=== PATIENT | female | born 1975 | race Caucasian/White ===

== ENCOUNTER → 2024-06-05 11:17 | Outpatient (REF) | payer BC, SELFPAY | LOC: HWRAD 11:17 | PROVIDERS: ATTENDING PHYSICIAN Family Medicine | DX: Z12.31 Encounter for screening mammogram for malignant neoplasm of breast (principal); E03.9 Hypothyroidism, unspecified | CPT/HCPCS: 76536; 77063; 77067 ==

== ENCOUNTER → 2024-06-19 10:12 | Outpatient (REF) | payer BC, SELFPAY | LOC: WDC 10:12 | PROVIDERS: ATTENDING PHYSICIAN Family Medicine | DX: R92.8 Other abnormal and inconclusive findings on diagnostic imaging of breast (principal) | CPT/HCPCS: 76642 ==

== ENCOUNTER → 2024-06-21 12:05 | Outpatient (REF) | payer BC, SELFPAY ==
--- NOTE | 2024-06-21 15:25 | OID.BR.INTR ---
MARGRETD Breast Navigator - Initial
- -
Date of Contact: 06/21/24
Met with patient. Patient given written information on navigator services available at [facility]. Will follow up as needed per protocol.
== END ==
LOC: WDC 12:05
PROVIDERS: ATTENDING PHYSICIAN Family Medicine
DX: N63.21 Unspecified lump in the left breast, upper outer quadrant (principal)
CPT/HCPCS: 88305; 19083; 77065; 88341; 88342; 88360; A4648

== ENCOUNTER 2024-06-25 12:40 | Emergency (ER) | payer BC, SELFPAY ==
[2024-06-25 13:36] VITALS: BMI 31.2
[2024-06-25 13:40] VITALS: BP 113/72
--- NOTE | 2024-06-25 13:55 | EDRN ---
Andrea Cortez PA in to see pt.
--- NOTE | 2024-06-25 14:14 | ED.GENMED ---
History of Present Illness
General
Chief Complaint: Musculo-Skeletal Complaint
Source: patient
Time Seen by Provider: 06/25/24 13:54
History of Present Illness
History of Present Illness:
49-year-old female presenting to the emergency department for evaluation of right ankle pain after accidentally slipping down a wet grassy surface last night around 2 AM, this morning with continued pain and swelling and inability to put direct
pressure on the right lower extremity. Patient also notes some associated abrasions on the right knee and forearm but otherwise no other concerns. Denies any loss consciousness, vomiting, visual changes. Patient states main concern is that she
previously had ligament repair to the same right ankle about 2 years ago done through an orthopedics specialist at [facility]. Patient took some anti-inflammatories prior to arrival. Also notes she has some tramadol at home to continue using
for pain as needed.
Past History
Past History
ED Past Medical History: GERD, Hypothyroidism, Psychiatric (anxiety) and Other (lyme, tardive dyskinesia, hemorrhoids, chronic back pain, sciatica)
ED Past Surgical History: Orthopedic, Tonsilectomy and Urological
Social History
Tobacco: Non-smoker
Alcohol: Occasional (Few times per week)
Drug: None
Personal: Single
Living: with family
Employment: Employed
Review of Systems
Review of Systems
All Other Systems: ROS reviewed and negative except as documented in HPI and ROS
Phy Exam
Physical Exam
Physical Exam:
GENERAL: Alert , in no apparent distress
EYE: conjunctiva clear
Head: Normocephalic atraumatic
NECK: Supple,
ENT: mmm.
LUNGS: no acute respiratory distress
NEUROLOGICAL: Alert and oriented
SKIN: Warm and dry, skin intact.
MUSCULOSKELETAL: Right lower extremity: Mild to moderate soft tissue swelling with significant tenderness overlying the lateral malleolus. No breaks in the skin or obvious deformity. No tenderness of the proximal tib-fib region. No tenderness at
the base of the fifth metatarsal. Easily palpable pedal pulse. Sensation grossly intact to light touch throughout the extremity. Superficial abrasion over the right knee and forearms noted.
PSYCH: Normal and appropriate interaction.
Scores
Heart Failure Risk
Heart Failure Risk Score: Not Applicable
Heart Score for Chest Pain Patients
STEMI patient?: Not applicable
Withdrawal Assessment of Alcohol
Withdrawal Assessment Completed?: Not applicable
Course
Orders/Labs/Results
Orders:
Orders
06/25/24 12:48
CR Ankle - Right Min 3 Views * Urgent
Comment:
Reason For Exam: injury
CR Facial Bones Comp Min 3 Vw* Urgent
Comment:
Reason For Exam: injury
06/25/24 14:15
Crutches-Treatment ONCE
Vital Signs
Initial and Last Documented VS:
Initial Vital Signs
Temp Pulse Resp Pulse Ox
98.3 F 92 18 95
06/25/24 12:46 06/25/24 12:46 06/25/24 12:46 06/25/24 12:46
Last Documented Vital Signs
Temp Pulse Resp BP Pulse Ox
98.3 F 81 16 113/72 94
06/25/24 12:46 06/25/24 13:40 06/25/24 13:40 06/25/24 13:40 06/25/24 13:40
Procedures
Splinting/Sling Placement
Right Lower Leg:
Procedure completed by: Dana
Pre-splint extermity exam: neurovascular intact
Type of splint: sugar-tong and posterior short leg
Splint material: other (3in orthoglass)
Splint checked by provider?: Yes
Normal distal neurovascular exam?: Yes
MDM/Problems Addressed
Differential Diagnosis Includes:
Fracture, sprain, contusion
MDM/Problems Addressed:
49-year-old female presenting to the emergency department for evaluation after slipping on a wet surface last night injuring her right ankle. Patient also notes associated abrasions but states this is really not bothering her. No head injury or
loss consciousness. No blood thinners. She is always x-rays were already ordered in triage. Patient declining anything additional for pain in the ER.
*Radiology
Radiology exam reviewed: preliminary read by ED provider (Lateral malleolus fracture)
*Pulse Oximetry
Patient hypoxic: no
*Critical Care Note
Total Time (30-74mins, 75-104mins- exclusive of procedures): Not Applicable
Patient Management
Escalation/DeEscalation of care consider admission/obs:
Patient placed in a posterior stirrup splint. Provided with crutches. Advised to remain nonweightbearing until follow-up with orthopedics. Aware of return precautions to the ER. Otherwise stable for discharge home
ED Attending Note
-
Portions of this chart may have been created with voice recognition software.� Occasional wrong word or��sound alike� substitutions may have occurred due to the inherent limitations of voice recognition software.
Discharge Plan
Departure
Patient Disposition: Home (Routine Discharge)
Date of Disposition: 06/25/24
Time of Disposition: 14:14
Patient with high blood pressure during this ER visit?: No
Discharge Problem:
Closed fracture of distal end of right fibula
Instructions: Ankle Fracture (DC)
Prescriptions:
No Action
tramadol 50 MG tablet
50 mg PO Q6HPRN PRN (Reason: moderate pain)
Patient Comments:
05/09/2021: last filled 05/02/21, 60 tabs for 15 days from [facility]#[id number]
sertraline 50 MG tablet
100 mg PO DAILY
cyclobenzaprine [Flexeril] 10 mg Tablet
10 mg PO HS PRN (Reason: pain)
levothyroxine 175 mcg Tablet
175 mcg PO DAILY
loperamide [Imodium] 2 mg Capsule
2 mg PO Q4H PRN (Reason: distention)
clonazepam 1 mg Tablet
1 mg PO BID
ibuprofen 400 mg Tablet
400 mg PO Q6H PRN (Reason: pain)
alum-mag hydroxide-simeth [Maalox] 200-200-20 mg/5 mL Suspension
10 ml PO QID PRN (Reason: distention)
medroxyprogesterone [Depo-Provera] 150 mg/mL Syringe
150 mg IM [id number]
methylphenidate HCl 40 mg Tablet,Chew,Ir-Er.[id number]
40 mg PO TID
Vitamin D3
50,000 units PO .WEEKLY
nitrofurantoin monohyd/m-cryst [Macrobid] 100 mg capsule
100 mg PO BID Qty: 20 0RF
Interventions
Interventions:
*Risk Screen - Suicide Last Done: 06/25/24 12:46
*General Assessment Last Done: 06/25/24 12:46
*Neglect/Abuse Screening Last Done: 06/25/24 12:46
ED- Fall Risk Assessment Last Done: 06/25/24 13:37
*ED COVID-19 Vaccine History Last Done: 06/25/24 13:37
*Nursing Disposition Last Done: 06/25/24 14:45
ED-Musculoskeletal Assessment Last Done: 06/25/24 13:37
Discharge Date and Time
Discharge Date/Time: 06/25/24 14:46
Print Language: AMHARIC
--- NOTE | 2024-06-25 14:20 | EDRN ---
Splint placed to R ankle by Andrea HERBERT and Carlito MENENDEZ PCT.
== END 2024-06-25 14:46 | disposition home or self-care (01) ==
LOC: EMR 12:40
PROVIDERS: EMERGENCY PHYSICIAN Emergency Medicine; FAMILY PHYSICIAN Family Medicine
DX: S82.831A Other fracture of upper and lower end of right fibula, initial encounter for closed fracture (principal); S80.211A Abrasion, right knee, initial encounter; S50.811A Abrasion of right forearm, initial encounter; R22.0 Localized swelling, mass and lump, head; W01.0XXA Fall on same level from slipping, tripping and stumbling without subsequent striking against object, initial encounter
CPT/HCPCS: 99283; 29515; 70150; 73610

== ENCOUNTER → 2024-09-11 12:24 | Outpatient (REF) | payer BC, SELFPAY ==
[2024-09-11 14:22] LABS: % Basophils 0.7 % (0-2); % Eosinophils 1.8 % (0-6); % Immature Granulocytes 0.4 % (0-0.5); % Monocytes 9.9 % (1.7-9.3); % Neutrophils 63.2 % (42.2-75.2); Absolute Eosinophils 0.1 10^3/uL (0-0.7); Absolute Lymphocytes 1.3 10^3/uL (1.2-3.4); Absolute Monocytes 0.6 10^3/uL (0.1-0.6); Absolute Neutrophils 3.5 10^3/uL (1.4-6.5); Hematocrit 42.8 % (37.0-47.0); Hemoglobin 14.5 g/dL (12.0-16.0); Mean Corp Hgb Conc. 33.9 g/dL (33.0-37.0); Mean Corpuscular Hgb 33.1 pg (27.0-31.0); Mean Corpuscular Volume 97.7 fL (81.0-99.0); Mean Platelet Volume 10.7 fL (7.4-10.4); Nucleated Red Blood Cells % 0 %; Platelet Count 171 10^3/uL (130-400); Red Blood Cell Count 4.38 10^6/uL (4.20-5.40); White Blood Cell Count 5.5 10^3/uL (4.8-10.8)
[2024-09-11 14:54] LABS: ALT (SGPT) 59 U/L (0-35); AST (SGOT) 65 U/L (14-36); Albumin 4.5 g/dl (3.5-5.0); Alkaline Phosphatase 112 U/L (38-126); Blood Urea Nitrogen 16 mg/dl (7-17); Calcium 9.8 mg/dl (8.4-10.2); Carbon Dioxide 25 mmol/L (22-30); Chloride 104 mmol/L (98-107); Glucose 93 mg/dl (70-99); Potassium 4.5 mmol/L (3.5-5.1); Sodium 141 mmol/L (135-145); Total Bilirubin 0.7 mg/dl (0.2-1.3); Total Protein 6.7 g/dl (6.3-8.2); eGFR > 60.00
== END ==
LOC: REG 12:24
PROVIDERS: ATTENDING PHYSICIAN Surgery Plastic and Reconstructive Surgery; FAMILY PHYSICIAN Family Medicine
DX: Z01.818 Encounter for other preprocedural examination (principal)
CPT/HCPCS: 36415; 80053; 85025; 93005

== ENCOUNTER → 2024-10-02 09:52 | Outpatient (REF) | payer BC, SELFPAY | LOC: WDC 09:52 | PROVIDERS: ATTENDING PHYSICIAN Surgery | DX: C50.412 Malignant neoplasm of upper-outer quadrant of left female breast (principal) | CPT/HCPCS: 38792; 76942; A9541 ==

== ENCOUNTER 2024-10-03 06:07 | Inpatient (IN) | payer BC, SELFPAY ==
[2024-09-19 11:14] VITALS: BMI 30.9
[2024-09-19 12:58] LABS: Prealbumin (Transthyretin) 33.6 mg/dl (17.6-36.0)
[2024-09-19 13:03] LABS: Vitamin D, 25-OH*** 41.9 ng/mL (30-80)
[2024-10-03] VITALS (18 sets, daily range): BP systolic 30–140; BP diastolic 65–81; BMI 30.9
[2024-10-03] MEDS: LOVENOX 40 MG SC (06:30)
[2024-10-03] MEDS: TYLENOL 1000 MG PO ×3 (06:52→23:36)
--- NOTE | 2024-10-03 07:15 | W.SUR.PREOP ---
Pre-Operative Surgical Note
-
I have examined this patient prior to the performance of the scheduled procedure.
The patient's condition is unchanged from the time of the current History and
Physical and the patient is able to undergo the scheduled procedure.
--- NOTE | 2024-10-03 13:03 | OR.RPT ---
Operative Report
Operative Report
# The patient is a 49-year-old female with biopsy-proven early stage favorable left breast carcinoma who presents for bilateral mastectomies, left sentinel lymph node mapping and biopsy and immediate reconstruction with Dr. Dann Leija. On the
day prior to the procedure the patient presented to the [facility] center where technetium radiotracer was injected into the left breast parenchyma. On the day of surgery the patient presented verified her procedures. DVT and antibiotic
prophylaxis were provided the patient was taken to the operating room and in the supine position general anesthesia with a laryngeal mask airway was induced. Bradley catheter was inserted using aseptic technique and chest breast and upper abdomen
were prepped and draped in usual sterile fashion. Once the sterile field was created, a timeout with all members present was performed. I began attention to the left breast where an inframammary incision was made sharply. Dissection was carried
down to fascia using the cautery and the intention was to preserve the capsule around the patient's existing saline breast implants. This would function potentially as a substitute for the acellular dermal matrix. The patient is still a smoker.
The breast was taken off the capsule taking care not to leave any remnant of breast tissue. Then the skin was elevated off the breast using the PlasmaBlade and in view of the retractor. At the level of the retroareolar region retroareolar tissue
was sent oriented for the pathologist and frozen section revealed no evidence of tumor cells. Dissection was completed heading superiorly. At this juncture the capsule was incised along anatomic planes and the saline implant was removed. Breast
dissection was completed by taking the rest of the tissue off laterally. Any larger vessels were controlled with 3-0 silk tie. Time out of body was noted and the specimen was oriented for the pathologist. The specimen immediately was placed in
formalin. Dr. Uribe had begun dissection on the right side elevating the capsule are dissecting around the capsule and removing the implant. That breast tissue was oriented and time had a body was noted as well. On the left side once the breast
was removed we entered the axillary space by incising clavipectoral fascia. Using the neoprobe 3 sentinel node packets were encountered and excised. There feeding vessels were controlled with 3-0 silk tie. Frozen section analysis in the nodes was
negative. Hemostasis was verified and a moist pack was placed in the cavity. Dr. Quigley began the reconstructive portion of the procedure on that side and I switched to the right to complete any further breast tissue dissection. Again a moist
pack was placed and reconstructive efforts continued. At this juncture all sponge needle and instrument counts were correct.
[place] Node Bx Breast Cancer
[place] Node Bx Breast Cancer
Operation performed with curative intent: Yes
Tracer(s) to ID [place] Nodes in Non-Neoadjuvant setting: Radioactive Tracer
Tracer(s) to ID [place] Nodes in the Neoadjuvant Setting: N/A
All nodes at end of dye-filled Lymphatic Channel removed: N/A
All Significantly Radioactive Nodes were removed: Yes
All Palpably Suspicious Nodes were Removed: Yes
Bx Proven Pos Nodes Marked Prior to Chemo ID'd & Removed: Yes
--- NOTE | 2024-10-03 13:33 | W.IMMPOSTOP ---
Surgical Immed Post Op Note
-
Primary Surgeon: SHIRA Pringle MD
Assisting Surgeon:
Pre-op Diagnosis: breast cancer, history of bilateral breast implants
Post-op Diagnosis: same
Procedure Performed: bilateral immediate prepectoral insole coverer placement for breast reconstruction at time of mastectomy
Anesthesia Type: General
Specimen / Cultures: Per Dr. Liz
Estimated Blood Loss: 30 cc
Complications: none
Operative Findings: as expected
--- NOTE | 2024-10-03 13:33 | OR.RPT ---
Operative Report
Operative Report
surgeon: SHIRA Pringle MD
Preoperative diagnosis: Breast cancer
Postoperative diagnosis: Same
Procedure:
1. Bilateral immediate breast reconstruction with prepectoral tissue expanders
2. Removal of bilateral saline breast implants
3. Extensive modifications to the implant capsule
Complications: None
Anesthesia: General
EBL: 30cc
Assayer size: 13 cm
Indications for procedure: Patient was referred to me by Dr. Liz with a recent diagnosis of breast cancer. She was planned to undergo bilateral mastectomy. We discussed her options for breast reconstruction at length including implant based
and autologous options. The patient opted for immediate reconstruction with tissue expanders. She understands that the final reconstruction will be staged. We also discussed the possible use of ADM and spy angiography. Risks include
reconstructive failure, capsular contracture, infection, delayed wound healing, mastectomy skin flap necrosis, hematoma, seroma and need for repeat procedure. Patient understood these risks and desired to proceed. Consents were signed accordingly.
Procedure in detail: Patient was identified the preoperative area and the surgical site was confirmed to be the bilateral breast. All questions were answered and consents were confirmed. Patient was then sat upright and normal anatomical landmarks
were marked including midline and inframammary fold. Patient was then taken back to the operating room placed supine on the table. She was prepped and draped in the usual sterile fashion using ChloraPrep solution. A Bradley catheter was placed. A
timeout for patient safety was performed was confirmed that bilateral SCDs were in place and preoperative antibiotics administered. The procedure began with Dr. Liz first performing the bilateral mastectomies. Her op report will be dictated
separately.
I assisted in the dissection and preservation of the prior implant capsules. Bilaterally, saline implants were removed. Extensive modifications were made to the implant capsule to allow for improvement in shape and coverage of the incident response engineer. The base
width was measured and appropriate tissue incident response engineer was selected. The incident response engineer was then sutured to the chest wall with a series of 2-0 silk sutures. The prior capsule was then sutured close over the incident response engineer. Pectoralis and intercostal blocks were
performed with Marcaine. 2 drains were then placed in the preaxial area line with a long subcutaneous tunnel and sutured in place with 2-0 Prolene sutures. The wound was irrigated with double antibiotic solution and dilute Betadine. The
mastectomy incisions were then closed with a series of 3-0 Vicryl's in the deep subcutaneous tissues followed by 3-0 and 4-0 Monocryl's in the deep dermis and superficial skin.
Attention was then placed on the contralateral side after completion of the mastectomy. The exact same procedure was performed. Implant was removed and the capsule modifications were made. The incident response engineer was then sutured to the chest wall using 2-0
silks and the capsule closed over the incident response engineer for complete coverage. Pectoralis and intercostal blocks were performed. Meticulous hemostasis was ensured and the wound was irrigated with combination of double antibiotic solution consisting of Ancef
and gentamicin as well as dilute Betadine. The wound was closed in layers with 3-0 Vicryl followed by 3-0 Monocryl and 4-0 Monocryl superficial skin.
The wounds were dressed accordingly and a supportive bra was placed. The patient was extubated taken to the PACU for further care. All counts were correct at the end the case was performed out complication.
--- NOTE | 2024-10-03 14:52 | PTCARENOTE ---
Pt arrived to 2S in bed. Full assessment completed. B/L breast DSGs with a scant amount of drainage noted. B/L EREN drain sites C/D/I, drains with sanguinous output noted. Alcohol screening completed, pt meets criteria for MSAS, Dr Pringle notified and
instructed RN to use ordered PRN Diazepam in place of associated ativan for MSAS protocol. Pt c/o pins/ needles to L 1st, 2nd and 3rd finger, strength equal b/l, + palpable radial pulse. Bed locked and in the lowest position, safety maintained.
Oriented to room and call rao.
[2024-10-03] MEDS: ROXICODONE 5 MG PO ×2 (15:14→21:05)
[2024-10-03] MEDS: NEURONTIN 100 MG PO ×2 (17:12→22:16)
[2024-10-03] MEDS: ANCEF 5 IV (20:34)
[2024-10-03] MEDS: KLONOPIN 1 MG PO (22:16)
[2024-10-04 03:05] VITALS: BP 102/66
[2024-10-04] MEDS: ANCEF 5 IV ×2 (03:56→11:32)
[2024-10-04] MEDS: ROXICODONE 5 MG PO ×2 (04:26→08:30)
--- NOTE | 2024-10-04 05:28 | DOWNTIME ---
There was a [employer] Client [employer]ter In Downtime on 10/04/2024 from 0100 to 10/04/2024 at 0350. Downtime documentation of patient's care, including medication administrations, has been reconciled in the electronic record per guidelines. Refer to the
patient's paper chart under the miscellaneous tab to see printed paper medication records and downtime forms.
[2024-10-04] MEDS: TYLENOL 1000 MG PO ×2 (05:35→11:32)
[2024-10-04] MEDS: SYNTHROID 150 MCG PO (05:35)
[2024-10-04 06:33] LABS: Hematocrit 37.2 % (37.0-47.0); Hemoglobin 12.1 g/dL (12.0-16.0)
[2024-10-04 06:58] LABS: Blood Urea Nitrogen 11 mg/dl (7-17); Calcium 8.4 mg/dl (8.4-10.2); Carbon Dioxide 28 mmol/L (22-30); Chloride 105 mmol/L (98-107); Estimated Creatinine Clearance 100 ml/min; Glucose 96 mg/dl (70-99); Potassium 3.8 mmol/L (3.5-5.1); Sodium 138 mmol/L (135-145); eGFR > 60.00
[2024-10-04 08:15] VITALS: BP 113/74
--- NOTE | 2024-10-04 08:20 | W.DCSUMMARY ---
Discharge Summary
Discharge Data
Date of Admission: 10/03/24
Date of Discharge: 10/04/24
-
Pending Results: No
Hospital Course
Admitted following bilateral mastectomy and immediate cognos report developer reconstruction for IV pain medication and mastectomy flap monitoring.
Followed a routine postoperative course.
Discharged pod1 ambulatory, pain controlled on PO meds, voiding. Close surgical follow up scheduled.
Discharge Plan
-
Patient Disposition: Home (Routine Discharge)
Discharge Diagnosis/Procedures: s/p bilateral mastectomy and immediate cognos report developer recon
Condition: Good
Diet: Regular
Activity: No strenuous activity
Driving Restrictions: Not until seen by your Dr
Bathing Restrictions: OK to Shower
Other Services: VN
Wound Care: Remove dressings if they become wet, light compression sports bra, strip and record drain output twice daily
Referrals:
Chino Barfield DO [Family Provider] -
Prescriptions:
New
cefadroxil 500 mg capsule
500 mg PO BID Qty: 42 0RF
acetaminophen [Tylenol Extra Strength] 500 mg Tablet
1,000 mg PO Q6 30 Days Qty: 240 0RF
docusate sodium 100 mg Capsule
100 mg PO BID 14 Days Qty: 28 0RF
gabapentin 100 mg Capsule
100 mg PO TID 30 Days Qty: 90 3RF
diazepam 5 mg Tablet
5 mg PO TIDPRN PRN (Reason: Muscle Spasms) 14 Days Qty: 42 1RF
oxycodone 5 mg Tablet
5 mg PO Q6HPRN PRN (Reason: breakthrough mod-severe pain) 7 Days Qty: 30 0RF
Continued
loperamide 2 mg Capsule
2 mg PO Q4H PRN (Reason: diarrhea)
ibuprofen 400 mg Tablet
400 mg PO Q6H PRN (Reason: pain)
alum-mag hydroxide-simeth 200-200-20 mg/5 mL Suspension
10 ml PO QID PRN (Reason: distention)
methylphenidate HCl 40 mg Tablet,Chew,Ir-Er.[id number]
40 mg PO TID
levothyroxine 150 mcg Tablet
150 mcg PO DAILY
cholecalciferol (vitamin D3) [Vitamin D3] 125 mcg (5,000 unit) Tablet
125 mcg PO DAILY
sertraline 150 mg Capsule
150 mg PO DAILY
B12 Injection
1 dose IM Q30D
aripiprazole [Abilify] 5 mg Tablet
5 mg PO DAILY
Medical Marijuana
1 dose PO PRN PRN (Reason: pain/anxiety)
Held
clonazepam 1 mg Tablet
1 mg PO BID
Hold Instructions: Resume on 10/18/24.
baclofen 10 mg Tablet
10 mg PO BID
Hold Instructions: Resume on 10/18/24.
Discontinued
tramadol 50 MG tablet
50 mg PO Q6HPRN PRN (Reason: moderate pain)
Patient Comments:
05/09/2021: last filled 05/02/21, 60 tabs for 15 days from [facility]#[id number]
Discharge Orders:
Discharge Patient (As Directed); Ordered 10/04/24
Ordered By: Carlo Pringle
Discharge Date and Time
Print Language: SAO TOMEAN
[2024-10-04] MEDS: ABILIFY 5 MG PO (08:27)
[2024-10-04] MEDS: ZOLOFT 150 MG PO (08:27)
[2024-10-04] MEDS: KLONOPIN 1 MG PO (08:27)
[2024-10-04] MEDS: NEURONTIN 100 MG PO (08:27)
--- NOTE | 2024-10-04 08:33 | W.PN.PLAS ---
Progress Note
Subjective Data
Doing well
Some pain issues over night.
Will take po meds today
Subjective: Ambulatory, Bradley Removed and Patient Voided
Objective Data
Vital Signs
Temp Pulse Resp BP Pulse Ox
98 F 73 16 102/66 95
10/04/24 03:05 10/04/24 03:05 10/04/24 03:05 10/04/24 03:05 10/04/24 03:05
Intake and Output
10/03/24 10/04/24 10/05/24
06:59 06:59 06:59
Intake Total 1120 / 1120
Output Total 965 / 965
Balance 155 / 155
Intake:
Oral fluids 960 / 960
IV fluids (Total) 150 / 150
Normosol 150 / 150
IV piggybacks
Output:
Drain Output (Total) 665 / 665
Left Breast A 190 / 190
Left Breast B 110 / 110
Right Breast A 315 / 315
Right Breast B 50 / 50
Urine, Bradley 300 / 300
Other:
Number of approximated MODERATE 2
amounts of urine
Number of approximated LARGE 1
amounts of urine
PEX:
NAD
No increased WOB
bilateral expanders in place
No undrained fluid collections
Drains serosang with appropriate output
Lab Results
10/04/24 05:58
10/04/24 05:58
Assessment / Plan
Doing well pod1 from bilateral mastectomy and implant based reconstruction, removal of prior implants
Home today with VN
SCDs
PO meds
abx
--- NOTE | 2024-10-04 09:05 | PTOTSP ---
The patient is independent with ambulation and elevations, offering no concerns regarding mobility upon discharge home. No PT needs at this time, will sign off.
--- NOTE | 2024-10-04 10:39 | CM ---
Patient seen at bedside. IA completed.
Case management consults completed.
Options reviewed for VN - referral sent to [facility]
Lives in a multistory home with 5 steps to enter, flight to second floor
PLOF: Independent
Denies DME
Patient will be staying with a friend upon discharge (in [facility] referral)
then will stay with her dad (in [facility] referral)
PCP: Chino Barfield
Pharmacy: [facility]
PLAN: Home, with [facility] VN
friend to transport
[facility] Fax #: [phone]
== END 2024-10-04 12:08 | disposition home health service (06) | DRG 581 ==
LOC: 2 SOUTH 06:07
PROVIDERS: Surgery; ADMITTING PHYSICIAN Surgery Plastic and Reconstructive Surgery; FAMILY PHYSICIAN Family Medicine
PROC: 07B60ZX Excision of Left Axillary Lymphatic, Open Approach, Diagnostic (ICD-10-PCS; 2024-10-03)
PROC: 0HTV0ZZ Resection of Bilateral Breast, Open Approach (ICD-10-PCS; 2024-10-03)
PROC: 0HPT0JZ Removal of Synthetic Substitute from Right Breast, Open Approach (ICD-10-PCS; 2024-10-03)
PROC: 0HHV0NZ Insertion of Tissue Expander into Bilateral Breast, Open Approach (ICD-10-PCS; 2024-10-03)
PROC: 07B50ZX Excision of Right Axillary Lymphatic, Open Approach, Diagnostic (ICD-10-PCS; 2024-10-03)
PROC: 0HBV0ZX Excision of Bilateral Breast, Open Approach, Diagnostic (ICD-10-PCS; 2024-10-03)
PROC: 0HPU0JZ Removal of Synthetic Substitute from Left Breast, Open Approach (ICD-10-PCS; 2024-10-03)
DX: C50.912 Malignant neoplasm of unspecified site of left female breast (principal); F17.200 Nicotine dependence, unspecified, uncomplicated; F90.9 Attention-deficit hyperactivity disorder, unspecified type; E03.9 Hypothyroidism, unspecified; E78.00 Pure hypercholesterolemia, unspecified; D50.9 Iron deficiency anemia, unspecified; Z88.1 Allergy status to other antibiotic agents; Z79.890 Hormone replacement therapy
CPT/HCPCS: 88305; 88307; 88332; 36415; 80048; 82306; 84134; 85014; 85018; 88331; 88342; 97161; 99406; C1789

== ENCOUNTER 2025-01-27 12:46 | Emergency (ER) | payer BC, SELFPAY ==
[2025-01-27 13:09] VITALS: BMI 30.2
--- NOTE | 2025-01-27 13:09 | ED.GENMED ---
History of Present Illness
General
Chief Complaint: Musculo-Skeletal Complaint
Time Seen by Provider: 01/27/25 13:09
History of Present Illness
History of Present Illness:
TIME OF INITIAL ENCOUNTER: 1:30 PM
HPI: Patient fell backwards onto her hands as she lost her balance trying to open an SUV trunk. She did not strike her head. She has right much greater than left wrist pain. There was no laceration. She noted deformity at the right wrist. She
denies any other symptoms or concerns elsewhere.
EXAM:
GENERAL: Well appearing in no distress
HEENT: Moist oral mucosa
NEUROLOGIC: Excellent strength all extremities, no obvious coordination deficits
PSYCHIATRIC: Appropriate mental status, normal insight and judgement
EXTREMITIES: There is significant soft tissue swelling diffusely to the dorsal and volar aspects of the right distal forearm and wrist, no laceration, markedly creased active range of motion to flexion extension due to pain, only mild tenderness and
only mildly decreased active range of motion at the left
SKIN: Ecchymosis noted at the right wrist
NUMBER AND COMPLEXITY OF PROBLEMS ADDRESSED AT THE ENCOUNTER
� Chronic conditions affecting care: Osteoporosis/osteopenia, prone to fractures
� Acute Exacerbation and/or Progression of Chronic Illness: This is an acute problem
� Differential Diagnosis includes: Distal radius fractures, wrist sprains, no evidence for laceration,
AMOUNT AND/OR COMPLEXITY OF DATA TO BE REVIEWED AND ANALYZED
� I performed an independent evaluation of and my interpretation is:
EKG:
CT:
X-rays: Minimally displaced intra-articular distal right radius fracture noted nondisplaced left distal radius fracture
Laboratory Studies:
Other:
� Review of other/old records: I reviewed records, the patient did have left breast surgery related to cancer in September 2024
� Clinical information was obtained by an independent historian: I spoke to boyfriend at bedside
� Prescriptions/Medications Considered but not given:
� Further testing considered but not performed:
RISK OF COMPLICATIONS AND/OR MORBIDITY OR MORTALITY OF PATIENT MANAGEMENT
� Social determinants of health affecting care: Lives at home
� Discussion with other providers:
� Escalation of care including admission/observation vs risk of discharge considered: Although the patient has markedly decreased active range of motion with some degree of deformity, the x-rays do not show any clear need for
reduction at this time. She wants to follow-up with her orthopedist at [place]. Will give CD. She is already on tramadol chronically. Will switch to oxycodone temporarily. She was informed not to take tramadol while she takes oxycodone.
ANY OTHER UPDATES:
Past History
Past History
ED Past Medical History: GERD, Hypothyroidism, Psychiatric (anxiety) and Other (lyme, tardive dyskinesia, hemorrhoids, chronic back pain, sciatica)
ED Past Surgical History: Orthopedic, Tonsilectomy and Urological
Social History
Tobacco: Non-smoker
Alcohol: Occasional (Few times per week)
Drug: None
Personal: Single
Living: with family
Employment: Employed
Phy Exam
Physical Exam
Physical Exam:
See HPI
Course
Orders/Labs/Results
Orders:
Orders
01/27/25 12:53
Forearm, Right 2 View [CR Forearm - Right 2 View] Urgent
Comment:
Reason For Exam: fall, pain
Wrist, Right 3 Views [CR Wrist - Right Min 3 Views] Urgent
Comment:
Reason For Exam: fall, pain
01/27/25 12:54
Wrist, Left 3 Views CR [CR Wrist - Left Min 3 Views] Urgent
Comment:
Reason For Exam: fall, pain
01/27/25 13:39
Oxycodone [Roxicodone] 5 mg PO NOW STA
01/27/25 13:40
Splints/Slings/Crut- Treatment ONCE
Location: Right
Type of Splint: Sugar Ton
Vital Signs
Initial and Last Documented VS:
Initial Vital Signs
Pulse Resp BP Pulse Ox
77 18 124/84 95
01/27/25 13:12 01/27/25 13:12 01/27/25 13:12 01/27/25 13:12
Last Documented Vital Signs
Pulse Resp BP Pulse Ox
77 18 124/84 95
01/27/25 13:12 01/27/25 13:12 01/27/25 13:12 01/27/25 13:12
*Critical Care Note
Total Time (30-74mins, 75-104mins- exclusive of procedures): Not Applicable
ED Attending Note
-
Portions of this chart may have been created with voice recognition software.� Occasional wrong word or��sound alike� substitutions may have occurred due to the inherent limitations of voice recognition software.
Discharge Plan
Departure
Patient Disposition: Home (Routine Discharge)
Date of Disposition: 01/27/25
Time of Disposition: 13:41
Patient with high blood pressure during this ER visit?: Yes
Discharge Problem:
Distal radius fracture, right
Instructions: Wrist fracture, BLOOD PRESSURE
Prescriptions:
New
oxycodone 5 mg tablet
5 - 10 mg PO Q8H PRN (Reason: Pain) Qty: 14 0RF
No Action
loperamide 2 mg Capsule
2 mg PO Q4H PRN (Reason: diarrhea)
clonazepam 1 mg Tablet
1 mg PO BID
ibuprofen 400 mg Tablet
400 mg PO Q6H PRN (Reason: pain)
alum-mag hydroxide-simeth 200-200-20 mg/5 mL Suspension
10 ml PO QID PRN (Reason: distention)
methylphenidate HCl 40 mg Tablet,Chew,[id number]
40 mg PO TID
levothyroxine 150 mcg Tablet
150 mcg PO DAILY
cholecalciferol (vitamin D3) [Vitamin D3] 125 mcg (5,000 unit) Tablet
125 mcg PO DAILY
sertraline 150 mg Capsule
150 mg PO DAILY
B12 Injection
1 dose IM Q30D
baclofen 10 mg Tablet
10 mg PO BID
aripiprazole [Abilify] 5 mg Tablet
5 mg PO DAILY
Medical Marijuana
1 dose PO PRN PRN (Reason: pain/anxiety)
cefadroxil 500 mg capsule
500 mg PO BID Qty: 42 0RF
acetaminophen [Tylenol Extra Strength] 500 mg Tablet
1,000 mg PO Q6 30 Days Qty: 240 0RF
docusate sodium 100 mg Capsule
100 mg PO BID 14 Days Qty: 28 0RF
gabapentin 100 mg Capsule
100 mg PO TID 30 Days Qty: 90 3RF
diazepam 5 mg Tablet
5 mg PO TIDPRN PRN (Reason: Muscle Spasms) 14 Days Qty: 42 1RF
oxycodone 5 mg Tablet
5 mg PO Q6HPRN PRN (Reason: breakthrough mod-severe pain) 7 Days Qty: 30 0RF
Referrals:
UNKNOWN - PT NOT,INTERVIEWE [Family Provider] -
Activity Restrictions/Additional Instructions:
The x-ray of the right wrist shows a comminuted fracture of the distal radius with mild displacement, there is also a small fracture of the ulna in the same general area. However I see no clear need to reduce the fracture today as there is no
significant displacement. The x-ray of the left wrist shows a subtle fracture at the distal radius. I am sending a prescription for oxycodone to your pharmacy. Consider taking senna like MiraLAX to help prevent constipation while on narcotic.
Follow-up with your orthopedist at [place].
Interventions
Interventions:
*Risk Screen - Suicide Last Done: 01/27/25 12:50
*General Assessment Last Done: 01/27/25 12:50
*Neglect/Abuse Screening Last Done: 01/27/25 12:50
*ED- Fall Risk Assessment Last Done: 01/27/25 13:11
*ED COVID-19 Vaccine History Last Done: 01/27/25 13:09
ED-Musculoskeletal Assessment Last Done: 01/27/25 13:09
Discharge Date and Time
Print Language: GIBRALTARIAN
[2025-01-27 13:12] VITALS: BP 124/84
[2025-01-27] MEDS: ROXICODONE 5 MG PO (13:43)
== END 2025-01-27 14:29 | disposition home or self-care (01) ==
LOC: EMR 12:46
PROVIDERS: EMERGENCY PHYSICIAN Emergency Medicine; FAMILY PHYSICIAN Family Medicine
DX: S52.591A Other fractures of lower end of right radius, initial encounter for closed fracture (principal); W19.XXXA Unspecified fall, initial encounter; K21.9 Gastro-esophageal reflux disease without esophagitis; F41.9 Anxiety disorder, unspecified; E03.9 Hypothyroidism, unspecified; Z87.19 Personal history of other diseases of the digestive system; G24.01 Drug induced subacute dyskinesia
CPT/HCPCS: 99283; 29125; 73090; 73110

== ENCOUNTER 2025-09-26 06:33 | Day surgery (SDC) | payer BC, SELFPAY ==
[2025-09-14 13:44] VITALS: BMI 29.1
[2025-09-14 14:13] LABS: Hematocrit 42.6 % (37.0-47.0); Hemoglobin 13.9 g/dL (12.0-16.0); Mean Corp Hgb Conc. 32.6 g/dL (33.0-37.0); Mean Corpuscular Volume 99.5 fL (81.0-99.0); Nucleated Red Blood Cells % 0 %; Platelet Count 143 10^3/uL (130-400); Red Cell Dist. Width 13.7 % (11.5-14.5)
[2025-09-14 14:44] LABS: ALT (SGPT) 48 U/L (0-35); AST (SGOT) 65 U/L (14-36); Albumin 4.6 g/dl (3.5-5.0); Alkaline Phosphatase 104 U/L (38-126); Blood Urea Nitrogen 14 mg/dl (7-17); Calcium 9.6 mg/dl (8.4-10.2); Carbon Dioxide 28 mmol/L (22-30); Chloride 105 mmol/L (98-107); Estimated Creatinine Clearance 85 ml/min; Glucose 99 mg/dl (70-99); Potassium 4.6 mmol/L (3.5-5.1); Sodium 137 mmol/L (135-145); Total Protein 7.2 g/dl (6.3-8.2); eGFR > 60.00
[2025-09-26] VITALS (11 sets, daily range): BP systolic 113–125; BP diastolic 72–94; BMI 29.1
[2025-09-26] MEDS: TYLENOL 1000 MG PO (08:41)
[2025-09-26] MEDS: NORMOSOL-R/PLASMALYTE-A 1000 IV (08:42)
--- NOTE | 2025-09-26 13:13 | W.IMMPOSTOP ---
Surgical Immed Post Op Note
-
Primary Surgeon: SHIRA Pringle MD
Assisting Surgeon:
Pre-op Diagnosis: History of breast cancer, status post bilateral mastectomy
Post-op Diagnosis: Same
Procedure Performed: Suction assisted lipectomy of trunk, fat grafting to the bilateral reconstructed breast 360 cc total
Anesthesia Type: General
Specimen / Cultures: None
Estimated Blood Loss: 30 cc
Complications: None
Operative Findings: As expected
--- NOTE | 2025-09-26 13:14 | OR.RPT ---
Operative Report
Operative Report
Date of surgery: 09/26/2025
Surgeon: SHIRA Pringle MD
Preoperative diagnosis:
1. History of breast cancer
2. Status post bilateral mastectomy
Postoperative diagnosis: Same
Procedure:
1. Suction assisted lipectomy of trunk for contouring of bilateral reconstructed breasts, lateral chest wall
2. Fat grafting to the bilateral reconstructed breast, 360 cc total
Anesthesia: General
Complications: None
EBL: 30 cc
Indications for procedure: Patient is a 50-year-old female who underwent bilateral mastectomy for breast cancer and staged fundraising sale representative to implant reconstruction. She successfully underwent stage II reconstruction with silicone gel implants. She
presented with concerns over the volume and lateral contour of her bilateral breast reconstruction. She complained of excess tissue in the preaxilla and lateral chest wall. A plan was made for suction assisted lipectomy to the areas of concern in
the preaxilla and lateral chest wall. Fat grafting could then be performed with the donor site abdomen and medial thighs for correction of asymmetry and volume condition. Risks of the procedure reviewed at length including infection, fat necrosis,
delayed wound healing, oil cysts, damage to deeper structures, need for repeat procedure and reconstructive failure. She understood these risks and desire to proceed and consented accordingly.
Procedure in detail: Patient was identified preoperatively and the surgical site was confirmed to be the bilateral breast. Areas for suction assisted lipectomy for the of the bilateral reconstructed breast were marked out accordingly. Attention
was then drawn to the anterior abdomen and bilateral flanks as well as medial thighs for areas for fat grafting donor sites. The relative volume deficiencies in the bilateral reconstructed breast within marcated for fat graft recipient sites. All
questions were answered and consents were confirmed. Patient was taken back to the operating placed upon the table. Anesthesia was induced and the patient was prepped and draped in usual sterile fashion using ChloraPrep solution. Timeout for
patient safety was performed was confirmed that preoperative antibiotics have been administered bilateral SCDs were placed. Procedure began with the injection of tumescent solution consisting of 1 L normal saline with 1 amp of epi and 20 cc of 1%
lidocaine. A total of 3 L of tumescent were used distributed over the after mentioned areas. Following an SAF E liposuction protocol the tissue was first off suction followed by lipo aspiration and then fat equilibration. This was done
using a series of 4 mm cannulas. The lipo contouring via suction assisted lipectomy was performed first to ensure adequate correction of the bilateral reconstructed breast and lateral chest wall. Following this, fat graft harvest from the anterior
abdomen and bilateral flanks as well as medial thigh was performed. This fat was then processed using the pure graft system. A total of 360 cc of rinsed and filtered fat graft was available for distribution of bilateral reconstructed breast.
Small focal cannula sites were used for injection of the fat graft into the bilateral reconstructed breast using a Marcum cannula. 180 cc was placed into each breast. Patient tolerated the procedure well was performed out complication. All poke
holes were closed with 5-0 fast. She was extubated taken the PACU for further care. All counts were correct at the end the case. Compression binder was placed over abdomen and instructions for compression shorts were provided postoperatively.
[2025-09-26] MEDS: DILAUDID 0.25 MG IV ×2 (13:25→13:37)
== END 2025-09-26 13:12 | disposition home or self-care (01) ==
LOC: SDS 06:33
PROVIDERS: ATTENDING PHYSICIAN Surgery Plastic and Reconstructive Surgery; FAMILY PHYSICIAN Family Medicine
DX: Z42.1 Encounter for breast reconstruction following mastectomy (principal); Z85.3 Personal history of malignant neoplasm of breast
CPT/HCPCS: 19380; 15771; 15772; 15877; 36415; 80053; 85025; 93005

== ENCOUNTER → 2025-10-19 14:45 | Outpatient (REF) | payer BC, SELFPAY | LOC: HWRAD 14:45 | PROVIDERS: ATTENDING PHYSICIAN Internal Medicine Critical Care Medicine; FAMILY PHYSICIAN Family Medicine | DX: Z87.891 Personal history of nicotine dependence (principal) | CPT/HCPCS: 71271 ==

== ENCOUNTER → 2025-10-29 | Outpatient (REF) | payer BC, SELFPAY | LOC: DHSLP | PROVIDERS: ATTENDING PHYSICIAN Internal Medicine Critical Care Medicine; FAMILY PHYSICIAN Family Medicine | DX: G47.33 Obstructive sleep apnea (adult) (pediatric) (principal) | CPT/HCPCS: 95800 ==